=== PATIENT | female | born 2000 | race Caucasian/White ===

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

== ENCOUNTER 2018-02-06 13:34 | Emergency (ER) | payer OTHER ==
[~2018-02-06] VITALS: Ht 157.5 cm; Wt 125.8 kg
[~2018-02-06 13:34] MED LIST changes: +HYDR-569 PO
[2018-02-06 13:40] VITALS: BP 97/59
[2018-02-06] MEDS ORDERED: ALBU18HF2 INH (14:05)
== END 2018-02-06 14:19 | disposition home or self-care (01) ==
LOC: ER 13:35
DX: R05 Cough (principal); R06.2 Wheezing; J02.9 Acute pharyngitis, unspecified; F17.200 Nicotine dependence, unspecified, uncomplicated
CPT/HCPCS: 99283

== ENCOUNTER 2018-05-01 20:24 | Emergency (ER) | payer SELFPAY ==
[~2018-05-01] VITALS: Ht 157.5 cm; Wt 58.0 kg
[~2018-05-01 20:24] MED LIST changes: +ALBU18HF2 INH; +HYDR-4383 PO; -HYDR-569 PO
[2018-05-01 20:40] VITALS: BP 111/69
[2018-05-01] MEDS ORDERED: HYDROcodone/acetaminophen 10/325mg tab PO ONE (21:30)
[2018-05-01] MEDS ORDERED: IBUP-1985 PO (21:30)
== END 2018-05-01 21:50 | disposition home or self-care (01) ==
LOC: ER 20:25
DX: S63.502A Unspecified sprain of left wrist, initial encounter (principal); Z79.2 Long term (current) use of antibiotics; Z79.899 Other long term (current) drug therapy; X58.XXXA Exposure to other specified factors, initial encounter; Y93.89 Activity, other specified; Y92.89 Other specified places as the place of occurrence of the external cause; Y99.8 Other external cause status
CPT/HCPCS: 29125; 73110; 99284

== ENCOUNTER 2018-10-21 21:45 | Emergency (ER) | payer OTHER ==
[~2018-10-21] VITALS: Ht 160 cm; Wt 57.0 kg
[2018-10-21 22:12] VITALS: BP 107/64
[2018-10-21 23:21] LABS: CLARITY,URINE CLEAR (Clear); COLOR,URINE YELLOW (Yellow); GLUCOSE, URINE NEGATIVE (Neg); KETONES,URINE NEGATIVE (Neg); LEUKOCYTE ESTERASE ,URINE NEGATIVE (Neg); NITRITES, URINE NEGATIVE (Neg); OCCULT BLOOD,URINE NEGATIVE (Neg); PROTEIN,URINE NEGATIVE (Neg); URINE HCG NEGATIVE (NEG); UROBILINOGEN,URINE 0.2 E.U/dL (0.2-1.0)
[2018-10-21 23:26] LABS: UA COLLECTION TYPE CLN CATCH MIDSTREAM
[2018-10-21 23:36] LABS: BASOPHILS # (AUTO) 0.1 X10'3 (0-0.2); EOSINOPHILS # (AUTO) 0.4 X10'3 (0-0.9); EOSINOPHILS % (AUTO) 3.8 % (0-6); HEMATOCRIT 42.3 % (35.0-45.0); HEMOGLOBIN 14.4 g/dl (12.0-16.0); LYMPHOCYTES # (AUTO) 3.4 X10'3 (1.1-4.8); LYMPHOCYTES % (AUTO) 32.1 % (21-51); MEAN CORPUSCULAR HEMOGLOBIN 29.9 PG (27.0-31.0); MEAN CORPUSCULAR HGB CONC 34.1 g/dL (33.0-36.5); MEAN CORPUSCULAR VOLUME 87.7 FL (78-98); MEAN PLATELET VOLUME 8.2 FL (7.4-10.4); MONOCYTES # (AUTO) 0.6 X10'3 (0-0.9); MONOCYTES % (AUTO) 6.1 % (2-12); PLATELET COUNT 255 X10'3 (140-440); RED BLOOD COUNT 4.82 X10'6 (4.20-5.60); RED CELL DISTRIBUTION WIDTH 13.9 % (11.5-14.5); WHITE BLOOD COUNT 10.5 X10'3 (4.5-11.0)
[2018-10-21 23:49] LABS: ALANINE AMINOTRANSFERASE 56 U/L (12-78); ALBUMIN 4.4 G/DL (3.4-5.0); ALBUMIN/GLOBULIN RATIO 1.2 (1.1-1.5); ALKALINE PHOSPHATASE 60 IU/L (20-180); ANION GAP 8 (8-16); ASPARTATE AMINO TRANSFERASE 21 U/L (10-37); BILIRUBIN,TOTAL 0.2 MG/DL (0.1-1.0); BLOOD UREA NITROGEN 19 MG/DL (7-18); BUN/CREATININE RATIO 21.1 (6.6-38.0); CALCIUM 9.7 MG/DL (8.5-10.1); CHLORIDE 101 MMOL/L (99-107); GLUCOSE 85 MG/DL (70-104); POTASSIUM 3.5 MMOL/L (3.5-5.1); SODIUM 138 MMOL/L (135-145); TOTAL CARBON DIOXIDE 29.2 MMOL/L (24-32); eGFR 80 ML/MIN
== END 2018-10-22 05:02 | disposition left against medical advice (07) ==
LOC: ER 21:46
DX: R10.31 Right lower quadrant pain (principal); Z53.21 Procedure and treatment not carried out due to patient leaving prior to being seen by health care provider
CPT/HCPCS: 36415; 80053; 81003; 81025; 85025; 85610; 99281

== ENCOUNTER 2019-06-27 00:03 | Emergency (ER) | payer OTHER ==
[~2019-06-27] VITALS: Ht 167.6 cm; Wt 54.5 kg
[2019-06-27 00:56] LABS: BASOPHILS # (AUTO) 0.1 X10'3 (0-0.2); BASOPHILS % (AUTO) 0.9 % (0-1); EOSINOPHILS # (AUTO) 0.4 X10'3 (0-0.9); HEMOGLOBIN 14.3 g/dl (12.0-16.0); LYMPHOCYTES # (AUTO) 3.3 X10'3 (1.1-4.8); MONOCYTES # (AUTO) 0.5 X10'3 (0-0.9); MONOCYTES % (AUTO) 5.7 % (2-12); URINE HCG NEGATIVE (NEG); WHITE BLOOD COUNT 9.1 X10'3 (4.5-11.0)
[2019-06-27 01:00] LABS: EOSINOPHILS % (AUTO) 4.7 % (0-6); HEMATOCRIT 41.3 % (35.0-45.0); LYMPHOCYTES % (AUTO) 36.3 % (21-51); MEAN CORPUSCULAR HEMOGLOBIN 30.4 PG (27.0-31.0); MEAN CORPUSCULAR HGB CONC 34.7 g/dL (33.0-36.5); MEAN CORPUSCULAR VOLUME 87.6 FL (78-98); NEUTROPHILS # (AUTO) 4.8 X10'3 (1.8-7.7); NEUTROPHILS % (AUTO) 52.4 % (42-75); PLATELET COUNT 231 X10'3 (140-440); RED BLOOD COUNT 4.71 X10'6 (4.20-5.60); RED CELL DISTRIBUTION WIDTH 12.7 % (11.5-14.5)
[2019-06-27 01:04] LABS: CLARITY,URINE CLEAR (Clear); COLOR,URINE YELLOW (Yellow); GLUCOSE, URINE NEGATIVE (Neg); KETONES,URINE NEGATIVE (Neg); LEUKOCYTE ESTERASE ,URINE NEGATIVE (Neg); NITRITES, URINE NEGATIVE (Neg); OCCULT BLOOD,URINE NEGATIVE (Neg); PROTEIN,URINE NEGATIVE (Neg); UA COLLECTION TYPE CLN CATCH MIDSTREAM; UROBILINOGEN,URINE 0.2 E.U/dL (0.2-1.0)
[2019-06-27 01:08] LABS: D-DIMER < 0.19 MG/L FEU (0-0.50)
[2019-06-27 01:10] LABS: ALANINE AMINOTRANSFERASE 32 U/L (12-78); ALBUMIN 4.9 G/DL (3.4-5.0); ALBUMIN/GLOBULIN RATIO 1.6 (1.1-1.5); ALKALINE PHOSPHATASE 61 IU/L (46-116); ANION GAP 6 (8-16); ASPARTATE AMINO TRANSFERASE 19 U/L (10-37); BILIRUBIN,TOTAL 0.3 MG/DL (0.1-1.0); BLOOD UREA NITROGEN 14 MG/DL (7-18); BUN/CREATININE RATIO 12.7 (6.6-38.0); CALCIUM 10.1 MG/DL (8.5-10.1); CHLORIDE 104 MMOL/L (99-107); GLUCOSE 88 MG/DL (70-104); LIPASE 56 U/L (73-393); POTASSIUM 4.3 MMOL/L (3.5-5.1); SODIUM 142 MMOL/L (135-145); TOTAL CARBON DIOXIDE 32.4 MMOL/L (24-32); eGFR 63 ML/MIN
[2019-06-27] MEDS ORDERED: ketorolac trometh. 30mg/ml inj. IM ONE (01:15)
[2019-06-27 01:27] VITALS: BP 134/77
== END 2019-06-27 01:29 | disposition home or self-care (01) ==
LOC: ER 00:03
DX: R07.89 Other chest pain (principal); R11.2 Nausea with vomiting, unspecified; F17.200 Nicotine dependence, unspecified, uncomplicated
CPT/HCPCS: 36415; 71045; 80053; 81003; 81025; 83690; 85025; 85379; 93005; 96372; 99284; J1885

== ENCOUNTER 2019-08-17 10:56 | Emergency (ER) | payer SELFPAY ==
[~2019-08-17] VITALS: Ht 160 cm; Wt 57.5 kg
[2019-08-17 11:09] VITALS: BP 115/47
[2019-08-17] MEDS ORDERED: benzonatate 100mg capsule PO ONE (12:25)
[2019-08-17] MEDS ORDERED: ondansetron 4mg rapidly disintigrating tab PO ONE (12:25)
[2019-08-17] MEDS ORDERED: acetaminophen 325mg tablet PO ONE (12:25)
[2019-08-17] MEDS ORDERED: ketorolac trometh inj. 60 MG/2 ML VIAL IM ONE (12:25)
[2019-08-17] MEDS ORDERED: ONDA8TAB6 PO (12:30)
[2019-08-17] MEDS ORDERED: IBUP-1984 PO (12:30)
[2019-08-17] MEDS ORDERED: ACET-812 PO (12:30)
[2019-08-17] MEDS ORDERED: BENZ-16 PO (12:30)
== END 2019-08-17 13:05 | disposition home or self-care (01) ==
LOC: ER 10:56
DX: J02.9 Acute pharyngitis, unspecified (principal); R05 Cough; M79.18 Myalgia, other site; Z79.899 Other long term (current) drug therapy
CPT/HCPCS: 96372; 99284; J1885

== ENCOUNTER 2019-12-14 10:47 | Emergency (ER) | payer SELFPAY ==
[~2019-12-14] VITALS: Ht 160 cm; Wt 55.5 kg
[~2019-12-14 10:47] MED LIST changes: +ACET-812 PO; +ONDA8TAB6 PO
[2019-12-14 10:59] VITALS: BP 111/68
[2019-12-14 12:16] LABS: BASOPHILS % (AUTO) 0.6 % (0-1); EOSINOPHILS # (AUTO) 0.1 X10'3 (0-0.9); EOSINOPHILS % (AUTO) 1.7 % (0-6); HEMATOCRIT 40.2 % (35.0-45.0); HEMOGLOBIN 13.5 g/dl (12.0-16.0); LYMPHOCYTES # (AUTO) 1.9 X10'3 (1.1-4.8); LYMPHOCYTES % (AUTO) 22.4 % (21-51); MEAN CORPUSCULAR HEMOGLOBIN 29.4 PG (27.0-31.0); MEAN CORPUSCULAR HGB CONC 33.5 g/dL (33.0-36.5); MEAN CORPUSCULAR VOLUME 87.9 FL (78-98); MEAN PLATELET VOLUME 8.6 FL (7.4-10.4); MONOCYTES # (AUTO) 0.5 X10'3 (0-0.9); MONOCYTES % (AUTO) 5.9 % (2-12); NEUTROPHILS # (AUTO) 5.9 X10'3 (1.8-7.7); NEUTROPHILS % (AUTO) 69.4 % (42-75); PLATELET COUNT 192 X10'3 (140-440); RED BLOOD COUNT 4.58 X10'6 (4.20-5.60); RED CELL DISTRIBUTION WIDTH 13.2 % (11.5-14.5); WHITE BLOOD COUNT 8.5 X10'3 (4.5-11.0)
[2019-12-14 12:27] LABS: ALANINE AMINOTRANSFERASE 21 U/L (12-78); ALBUMIN 4.1 G/DL (3.4-5.0); ALBUMIN/GLOBULIN RATIO 1.3 (1.1-1.5); ALKALINE PHOSPHATASE 38 IU/L (46-116); ANION GAP 8 (8-16); ASPARTATE AMINO TRANSFERASE 15 U/L (10-37); BILIRUBIN,TOTAL 0.4 MG/DL (0.1-1.0); BLOOD UREA NITROGEN 13 MG/DL (7-18); BUN/CREATININE RATIO 14.6 (6.6-38.0); CALCIUM 9.5 MG/DL (8.5-10.1); CHLORIDE 104 MMOL/L (99-107); CREATININE 0.89 MG/DL (0.40-0.90); GLUCOSE 80 MG/DL (70-104); SODIUM 138 MMOL/L (135-145); TOTAL CARBON DIOXIDE 25.8 MMOL/L (24-32); TOTAL PROTEIN 7.2 G/DL (6.4-8.2); eGFR 80 ML/MIN
[2019-12-14 12:45] LABS: URINE HCG POSITIVE (NEG)
[2019-12-14 12:49] LABS: BETA HCG,QUANTITATIVE 51243 mIU/ml; LIPASE 72 U/L (73-393)
[2019-12-14 12:49] LABS: CLARITY,URINE CLOUDY (Clear); COLOR,URINE YELLOW (Yellow); GLUCOSE, URINE NEGATIVE (Neg); KETONES,URINE 15 mg/dl (Neg); LEUKOCYTE ESTERASE ,URINE NEGATIVE (Neg); NITRITES, URINE NEGATIVE (Neg); OCCULT BLOOD,URINE TRACE-LYSED (Neg); PROTEIN,URINE NEGATIVE (Neg); UROBILINOGEN,URINE 0.2 E.U/dL (0.2-1.0)
[2019-12-14] MEDS ORDERED: acetaminophen 325mg tablet PO ONE (13:00)
[2019-12-14 13:13] LABS: UA COLLECTION TYPE CLN CATCH MIDSTREAM
[2019-12-14 13:21] LABS: MUCUS STRANDS MODERATE /LPF (Neg); SQUAMOUS EPITHELIAL CELL,UR MODERATE /LPF (FEW)
[2019-12-14 13:22] LABS: BACTERIA,URINE 1+ /HPF (Neg); RBC,URINE 0-2 /HPF (0-2); WBC,URINE 0-4 /HPF (0-4)
[2019-12-14] MEDS ORDERED: CefTRIAXone 250MG IM Kit w/LIDOcaine IM STA (13:45)
== END 2019-12-14 14:32 | disposition home or self-care (01) ==
LOC: ER 10:48
DX: O26.891 Other specified pregnancy related conditions, first trimester (principal); R10.31 Right lower quadrant pain; Z79.2 Long term (current) use of antibiotics; Z79.899 Other long term (current) drug therapy; Z3A.01 Less than 8 weeks gestation of pregnancy
CPT/HCPCS: 36415; 76705; 76802; 80053; 81001; 81025; 83690; 84702; 85025; 87210; 96372; 99285; J0696; 76801

== ENCOUNTER 2020-02-23 16:53 | Emergency (ER) | payer MEDICAID, OTHER ==
[~2020-02-23] VITALS: Ht 160 cm; Wt 59.4 kg
--- NOTE | 2020-02-23 17:46 | NUR ---
PATIENT UNABLE TO URINATE AT THIS TIME. US WANTS HER TO HAVE A FEW BLADDER FOR THE PROCEDURE. WILL ATTEMPT URINE SAMPLE AFTER US.
[2020-02-23 18:54] VITALS: BP 105/69
[2020-02-23 19:11] LABS: CLARITY,URINE CLEAR (Clear); COLOR,URINE YELLOW (Yellow); GLUCOSE, URINE NEGATIVE (Neg); KETONES,URINE NEGATIVE (Neg); LEUKOCYTE ESTERASE ,URINE NEGATIVE (Neg); NITRITES, URINE NEGATIVE (Neg); OCCULT BLOOD,URINE NEGATIVE (Neg); PH,URINE 6.5 (4.8-8.0); PROTEIN,URINE NEGATIVE (Neg); UROBILINOGEN,URINE 0.2 E.U/dL (0.2-1.0)
[2020-02-23 19:12] LABS: UA COLLECTION TYPE CLN CATCH MIDSTREAM
== END 2020-02-23 18:56 | disposition home or self-care (01) ==
LOC: ER 16:56
DX: O9A.212 Injury, poisoning and certain other consequences of external causes complicating pregnancy, second trimester (principal); S30.1XXA Contusion of abdominal wall, initial encounter; Z3A.17 17 weeks gestation of pregnancy; Z79.2 Long term (current) use of antibiotics; Z79.899 Other long term (current) drug therapy; V87.7XXA Person injured in collision between other specified motor vehicles (traffic), initial encounter; Y93.89 Activity, other specified; Y99.8 Other external cause status; Y92.410 Unspecified street and highway as the place of occurrence of the external cause
CPT/HCPCS: 36415; 76805; 81003; 84702; 99284

== ENCOUNTER 2020-03-05 16:58 | Emergency (ER) | payer MEDICAID, OTHER ==
[~2020-03-05] VITALS: Ht 167.6 cm; Wt 70.0 kg
[2020-03-05 17:01] VITALS: BP 101/65
== END 2020-03-05 18:32 | disposition home or self-care (01) ==
LOC: ER 16:58
DX: O9A.212 Injury, poisoning and certain other consequences of external causes complicating pregnancy, second trimester (principal); M25.512 Pain in left shoulder; Z3A.19 19 weeks gestation of pregnancy; Z79.2 Long term (current) use of antibiotics; Z79.899 Other long term (current) drug therapy; W05.1XXA Fall from non-moving nonmotorized scooter, initial encounter; Y93.89 Activity, other specified; Y92.410 Unspecified street and highway as the place of occurrence of the external cause; Y99.8 Other external cause status
CPT/HCPCS: 73030; 99283

== ENCOUNTER 2020-07-13 20:33 | Emergency (ER) | payer MEDICAID ==
[~2020-07-13] VITALS: Ht 160 cm; Wt 74.8 kg
[2020-07-13 20:39] VITALS: BP 107/55
== END 2020-07-13 22:06 | disposition home or self-care (01) ==
LOC: ER 20:33
DX: H11.33 Conjunctival hemorrhage, bilateral (principal); R51.9 Headache, unspecified; Z79.2 Long term (current) use of antibiotics; Z79.899 Other long term (current) drug therapy
CPT/HCPCS: 99283

== ENCOUNTER 2021-02-22 22:31 | Emergency (ER) | payer MEDICAID ==
[~2021-02-22] VITALS: Ht 160 cm; Wt 52.0 kg
[2021-02-22 22:58] VITALS: BP 98/64
--- NOTE | 2021-02-23 01:38 | NUR ---
Pipo mott in [facility] - 02/23/21 at 0138 by JOSE BS 188
[2021-02-23] MEDS ORDERED: dexamethasone 4mg tablet PO ONE (02:55)
[2021-02-23] MEDS ORDERED: DEXA6TAB6 PO (03:09)
== END 2021-02-23 03:42 | disposition home or self-care (01) ==
LOC: ER 22:32
DX: U07.1 COVID-19 (principal); J02.9 Acute pharyngitis, unspecified; R06.02 Shortness of breath; R11.2 Nausea with vomiting, unspecified; F17.200 Nicotine dependence, unspecified, uncomplicated; Z79.2 Long term (current) use of antibiotics; Z79.899 Other long term (current) drug therapy
CPT/HCPCS: 71045; 87635; 99284; C9803

== ENCOUNTER 2021-08-30 14:35 | Emergency (ER) | payer MEDICAID ==
[~2021-08-30] VITALS: Ht 160 cm; Wt 57.7 kg
[~2021-08-30 14:35] MED LIST changes: +DEXA6TAB6 PO
[2021-08-30 14:45] VITALS: BP 110/50
== END 2021-08-30 15:34 | disposition home or self-care (01) ==
LOC: ER 14:37
DX: M79.671 Pain in right foot (principal); M25.571 Pain in right ankle and joints of right foot; Z79.2 Long term (current) use of antibiotics; Z79.899 Other long term (current) drug therapy
CPT/HCPCS: 73610; 73630; 99284

== ENCOUNTER 2022-12-05 10:15 | Emergency (ER) | payer MEDICAID ==
[~2022-12-05] VITALS: Ht 160 cm; Wt 52.0 kg
[2022-12-05 10:59] LABS: MEAN PLATELET VOLUME 9.2 FL (7.4-10.4); WHITE BLOOD COUNT 6.3 X10'3 (4.5-11.0)
[2022-12-05 11:01] LABS: BASOPHILS # (AUTO) 0.1 X10'3 (0-0.2); BASOPHILS % (AUTO) 1.4 % (0-1); EOSINOPHILS # (AUTO) 0.4 X10'3 (0-0.9); EOSINOPHILS % (AUTO) 6.5 % (0-6); HEMATOCRIT 39.7 % (35.0-45.0); HEMOGLOBIN 13.3 g/dl (12.0-16.0); LYMPHOCYTES # (AUTO) 2.7 X10'3 (1.1-4.8); LYMPHOCYTES % (AUTO) 42.3 % (21-51); MEAN CORPUSCULAR HEMOGLOBIN 29.5 PG (27.0-31.0); MEAN CORPUSCULAR HGB CONC 33.4 g/dL (33.0-36.5); MEAN CORPUSCULAR VOLUME 88.3 FL (78-98); MONOCYTES # (AUTO) 0.4 X10'3 (0-0.9); MONOCYTES % (AUTO) 6.5 % (2-12); NEUTROPHILS # (AUTO) 2.7 X10'3 (1.8-7.7); NEUTROPHILS % (AUTO) 43.3 % (42-75); PLATELET COUNT 186 X10'3 (140-440); RED CELL DISTRIBUTION WIDTH 14.1 % (11.5-14.5)
[2022-12-05 11:05] LABS: ALANINE AMINOTRANSFERASE 41 U/L (12-78); ALBUMIN 3.8 G/DL (3.4-5.0); ALBUMIN/GLOBULIN RATIO 1.2 (1.1-1.5); ALKALINE PHOSPHATASE 49 IU/L (46-116); ANION GAP 7 (8-16); ASPARTATE AMINO TRANSFERASE 23 U/L (10-37); BILIRUBIN,TOTAL 0.5 MG/DL (0.1-1.0); BLOOD UREA NITROGEN 15 MG/DL (7-18); BUN/CREATININE RATIO 15.5 (10.0-20.0); CALCIUM 8.8 MG/DL (8.5-10.1); CHLORIDE 106 MMOL/L (99-107); CREATININE 0.97 MG/DL (0.40-0.90); GLUCOSE 88 MG/DL (70-104); LIPASE < 50 U/L (73-393); POTASSIUM 4.2 MMOL/L (3.5-5.1); SODIUM 140 MMOL/L (135-145); TOTAL CARBON DIOXIDE 27.4 MMOL/L (24-32); eGFR 71 ML/MIN
[2022-12-05 11:07] LABS: CLARITY,URINE CLOUDY (Clear); COLOR,URINE YELLOW (Yellow); GLUCOSE, URINE NEGATIVE (Neg); KETONES,URINE NEGATIVE (Neg); LEUKOCYTE ESTERASE ,URINE NEGATIVE (Neg); NITRITES, URINE NEGATIVE (Neg); OCCULT BLOOD,URINE NEGATIVE (Neg); PH,URINE 5.5 (4.8-8.0); PROTEIN,URINE NEGATIVE (Neg); UROBILINOGEN,URINE 0.2 E.U/dL (0.2-1.0)
[2022-12-05 11:08] LABS: UA COLLECTION TYPE CLN CATCH MIDSTREAM
[2022-12-05 11:10] LABS: URINE HCG NEGATIVE (NEG)
[2022-12-05 11:32] LABS: SQUAMOUS EPITHELIAL CELL,UR MODERATE /LPF (FEW)
[2022-12-05 11:34] LABS: MUCUS STRANDS FEW /LPF (Neg)
[2022-12-05 11:35] LABS: BACTERIA,URINE FEW /HPF (Neg)
[2022-12-05 11:36] LABS: RBC,URINE NONE SEEN /HPF (0-2); WBC,URINE 0-4 /HPF (0-4)
[2022-12-05 11:37] VITALS: BP 91/48
[2022-12-05] MEDS ORDERED: HYDROcodone/acetaminophen 10/325mg tab PO ONE (12:10)
[2022-12-05] MEDS ORDERED: HYDR-3972 PO (12:33)
== END 2022-12-05 12:48 | disposition home or self-care (01) ==
LOC: ER 10:15
DX: R07.89 Other chest pain (principal); Z79.899 Other long term (current) drug therapy
CPT/HCPCS: 71046; 80053; 81001; 81025; 83690; 85025; 93005; 99285

== ENCOUNTER 2024-02-21 09:10 | Emergency (ER) | payer MEDICAID ==
[~2024-02-21] VITALS: Ht 160 cm; Wt 69.1 kg
[2024-02-21 10:32] LABS: STREP A SCREEN NEGATIVE (Neg)
[2024-02-21] MEDS: amoxicillin 250mg capsule PO ONE (10:40)
[2024-02-21 10:45] VITALS: BP 112/60; PULSE 86; RESP 16; TEMP 97.8; O2SAT 98
== END 2024-02-21 10:46 | disposition home or self-care (01) ==
LOC: ER 09:11
DX: U07.1 COVID-19 (principal); J02.9 Acute pharyngitis, unspecified; J39.2 Other diseases of pharynx; J04.0 Acute laryngitis; Z79.1 Long term (current) use of non-steroidal anti-inflammatories (NSAID); Z79.2 Long term (current) use of antibiotics; Z79.899 Other long term (current) drug therapy
CPT/HCPCS: 36415; 87081; 87811; 87880; 99283

== ENCOUNTER 2024-09-22 12:19 | Emergency (ER) | payer MEDICAID ==
[~2024-09-22] VITALS: Ht 160 cm; Wt 49.5 kg
[2024-09-22 12:22] VITALS: BP 94/60; PULSE 80; RESP 15; TEMP 98.3; O2SAT 98
[2024-09-22 13:43] LABS: BILIRUBIN,URINE NEGATIVE (Neg); CLARITY,URINE CLEAR (Clear); COLOR,URINE YELLOW (Yellow); GLUCOSE, URINE NEGATIVE (Neg); KETONES,URINE NEGATIVE (Neg); LEUKOCYTE ESTERASE ,URINE NEGATIVE (Neg); NITRITES, URINE NEGATIVE (Neg); OCCULT BLOOD,URINE NEGATIVE (Neg); PROTEIN,URINE 30 mg/dl (Neg); UROBILINOGEN,URINE 0.2 E.U/dL (0.2-1.0)
[2024-09-22 13:46] LABS: UA COLLECTION TYPE CLN CATCH MIDSTREAM
[2024-09-22 13:52] LABS: WBC,URINE 0-4 /HPF (0-4)
[2024-09-22 13:53] LABS: BACTERIA,URINE 1+ /HPF (Neg); HYALINE CASTS 0-3 /LPF (NEGATIVE); MUCUS STRANDS FEW /LPF (Neg); RBC,URINE 0-2 /HPF (0-2); SQUAMOUS EPITHELIAL CELL,UR FEW /LPF (FEW)
[2024-09-22 14:41] LABS: BASOPHILS # (AUTO) 0.1 X10'3 (0-0.2); BASOPHILS % (AUTO) 0.6 % (0-1); EOSINOPHILS # (AUTO) 0.2 X10'3 (0-0.9); EOSINOPHILS % (AUTO) 1.7 % (0-6); HEMOGLOBIN 12.4 g/dl (12.0-16.0); LYMPHOCYTES # (AUTO) 1.9 X10'3 (1.1-4.8); LYMPHOCYTES % (AUTO) 15.5 % (21-51); MEAN CORPUSCULAR HEMOGLOBIN 28.5 PG (27.0-31.0); MEAN CORPUSCULAR HGB CONC 32.8 g/dL (33.0-36.5); MEAN CORPUSCULAR VOLUME 86.9 FL (78-98); MEAN PLATELET VOLUME 8.9 FL (7.4-10.4); MONOCYTES # (AUTO) 0.8 X10'3 (0-0.9); MONOCYTES % (AUTO) 6.6 % (2-12); NEUTROPHILS # (AUTO) 9.3 X10'3 (1.8-7.7); NEUTROPHILS % (AUTO) 75.6 % (42-75); PLATELET COUNT 195 X10'3 (140-440); RED BLOOD COUNT 4.37 X10'6 (4.20-5.60); RED CELL DISTRIBUTION WIDTH 15.4 % (11.5-14.5); WHITE BLOOD COUNT 12.3 X10'3 (4.5-11.0)
[2024-09-22 15:04] LABS: ALBUMIN 3.6 G/DL (3.4-5.0); ANION GAP 9 (8-16); BLOOD UREA NITROGEN 14 MG/DL (7-18); BUN/CREATININE RATIO 17.5 (10.0-20.0); CALCIUM 9.4 MG/DL (8.5-10.1); CHLORIDE 103 MMOL/L (99-107); GLUCOSE 81 MG/DL (70-104); POTASSIUM 4.4 MMOL/L (3.5-5.1); SODIUM 139 MMOL/L (135-145); eCRCL 83 ML/MIN; eGFR 87 ML/MIN
[2024-09-22 15:06] LABS: BETA HCG,QUANTITATIVE < 1.0 mIU/ml
[2024-09-22] MEDS ORDERED: DOXY100C43 PO (17:32)
[2024-09-22] MEDS ORDERED: METR-159 PO (17:32)
== END 2024-09-22 18:05 | disposition home or self-care (01) ==
LOC: ER 12:20
DX: N73.9 Female pelvic inflammatory disease, unspecified (principal); Z79.899 Other long term (current) drug therapy; Z79.84 Long term (current) use of oral hypoglycemic drugs
CPT/HCPCS: 36415; 76856; 80048; 81001; 84702; 85025; 93976; 99284

== ENCOUNTER 2024-11-28 15:28 | Emergency (ER) | payer MEDICAID ==
[~2024-11-28] VITALS: Ht 160 cm; Wt 56.6 kg
[2024-11-28 15:36] VITALS: BP 111/50; PULSE 98; RESP 18; O2SAT 98
--- NOTE | 2024-11-28 15:44 | Physician Documentation ---
History of Present Illness ~ Chief Complaint: Finger pain Stated Complaint: L HAND PAIN Time Seen by MD: 16:16 Primary Medical Doctor: none HPI 24-year-old female who presents with left thumb pain after striking it with a hammer while trying to removing lock from a hose bib. Patient reports she struck the base of her thumb at her palm where the pain is worse, reports pain is worse when moving her wrist. Patient reports no other acute symptoms or concerns reports no other injuries. Tetanus within 5 years: No Medication Reconciliation Allergies: Coded Allergies: No Known Allergies (Unverified , 11/28/24) Scheduled Acetaminophen (Tylenol Extra Strength), 12 TABLET PO Q6H Albuterol Sulfate (Ventolin Hfa), 2 PUFFS INH Q4HPRN Amoxicillin Trihydrate (Amoxicillin), 1 CAP PO TID Dexamethasone (Decadron), 1 TAB PO ONCE Ibuprofen (Motrin), 400 MG PO TID Ibuprofen (Ibuprofen), 1 TAB PO Q8H Ondansetron Hcl (Zofran), 1 TAB PO Q8H Penicillin V Potassium* (Penicillin VK*), 500 MG PO Q6H Scheduled PRN Hydrocodone/Acetaminophen ([place] 5-325 Tablet), 1-2 TAB PO Q4HPRN PRN for pain Ibuprofen (Ibuprofen), 1 TAB PO Q6H PRN PRN for pain Ibuprofen (Ibuprofen), 1 TAB PO Q6H PRN PRN for pain Miscellaneous Medications Home Med List (No Home Medications), (Reported) Past Medical History Past Medical History: [place] Past Surgical History: noncontributory Alcohol Use: Rarely Drug Use: none Lives with: Father Lives In: Home Occupation: employed Review of Systems ROS Left thumb pain as stated above in the HPI, otherwise all systems are reviewed and negative. Physical Exam Vital Signs: Temperature: 97.1, Source: Temporal, Heart Rate: 98, Respiratory Rate: 18, BP: 111/50, Pulse Oximetry: 98, Weight: 56.600 Physical Exam VITALS: Reviewed and as above. GENERAL: Alert, nontoxic appearing, no apparent distress. RESPIRATORY: No increased work of breathing, no respiratory distress, speaking in full clear sentences MUSCULOSKELETAL: Palmar aspect of Left thumb tender to palpation, mild ecchymosis, brisk capillary refill distal to injury in thumb, sensation intact Progress Results/Orders Results/Orders Orders - LEONIDAS TOVAR Ortho Orders (11/28/24 16:40) Completed Orders - LEONIDAS TOVAR Ibuprofen Tablet (Motrin Tablet) (11/28/24 16:40) Vital Signs 11/28/24 11/28/24 15:36 17:20 Temp 97.1 97.1 Pulse 98 Resp 18 B/P (MAP) 111/50 Pulse Ox 98 EKG/XRAY/CT/US/VASC/MRI Bone/Soft Tissue X-Ray (Ext.) : Additional Comment CLINICAL INDICATION: HAND PAIN TECHNIQUE: 3-view left hand DI HAND, COMPLETE (3VW MIN) Comparison: FOOT, COMPLETE (3VW MIN) on DOS: 08/30/21, ANKLE, COMPLETE(3VW MIN) on DOS: 08/30/21 FINDINGS/IMPRESSION: : There is no evidence of acute fracture or dislocation. Soft tissues are unremarkable. Electronically Signed by:ONEAL CHAPMAN MD Date & Time: 11/28/241601 Dictated by: ONEAL CHAPMAN MD Dictation date and time: 11/28/241601 I have reviewed and agree with the radiology report. I have reviewed and interpreted the imaging as: No fracture or dislocation Medical Decision Making Findings This 24-year-old female presented with hand pain at the base of her left thumb on the palmar aspect after striking the the area with a hammer while attempting to remove a lock from a hose bib, there was some ecchymosis on physical exam to the area and was tender to palpation with pain elicited with moving the wrist however reassuringly the finger was neurovascularly intact. An x-ray of the area did not demonstrate fracture or dislocation. Patient was medicated for pain and placed in a wrist splint for comfort. Patient to be treated with rest ice compression and elevation strategy remainder of physical exam was benign patient is appropriate for outpatient follow up. Patient provided home care instructions, follow up instructions, and return to care precautions which he verbalized understanding of. Hand Diff Dx:Considerations: Include: Abrasion, Contusion, Fracture-carpal, Fracture-metacarpal, Fracture-phalynx, Fracture-radius, Gout, Neurovascular injury, Sprain, Subungual hematoma Departure Disposition: 01 HOME / SELF CARE / HOMELESS Impression: Primary Impression: Hand pain, left Condition: Improved Discharge Instructions: RICE Therapy for Routine Care of Injuries Additional Instructions: Please see the attached home care instructions. Use the provided wrist brace as needed for comfort. Please take the prescribed ibuprofen as needed for pain, you may add [id number] Tylenol as directed by the [id number] packaging as needed for pain. Please follow up with your primary care provider in the next few days. Please return to the emergency department for any new or worsening concerning symptoms. Referrals: NO PRIMARY CARE PROVIDER (PCP) Prescriptions Ibuprofen (Ibuprofen) 800 Mg Tablet 1 TAB PO Q8H for pain for 10 Days, #30 TAB 0 Refills Prov: LEONIDAS TOVAR 11/28/24 Education Educated: Patient Educated regarding: diagnosis, treatment, prognosis, need for follow up Signature Scribe Signature: No scribe Attestation: The note accurately reflects work and decisions made by me.JAVIER Aldridge 11/29/24 02:19 LEONIDAS TOVAR Nov 28, 2024 15:43
--- NOTE | 2024-11-28 16:04 | RADIOLOGY REPORT ---
CLINICAL INDICATION: HAND PAIN TECHNIQUE: 3-view left hand DI HAND, COMPLETE (3VW MIN) Comparison: FOOT, COMPLETE (3VW MIN) on DOS: 08/30/21, ANKLE, COMPLETE(3VW MIN) on DOS: 08/30/21 FINDINGS/IMPRESSION: : There is no evidence of acute fracture or dislocation. Soft tissues are unremarkable.
[2024-11-28] MEDS ORDERED: ibuprofen tablet 400 MG TABLET PO ONE (16:40)
[2024-11-28] MEDS ORDERED: IBUP-1986 PO (16:48)
[2024-11-28 17:20] VITALS: TEMP 97.1
== END 2024-11-28 17:22 | disposition home or self-care (01) ==
LOC: ER 15:29
DX: S60.012A Contusion of left thumb without damage to nail, initial encounter (principal); W22.8XXA Striking against or struck by other objects, initial encounter; Y93.89 Activity, other specified; Y92.89 Other specified places as the place of occurrence of the external cause; Y99.8 Other external cause status
CPT/HCPCS: 29125; 73130; 99283